=== PATIENT | male | born 1950 | race Caucasian/White ===

== ENCOUNTER 2019-06-29 13:40 | Outpatient (CLI) | payer OTHER | END 2019-06-29 13:53 | disposition home or self-care (01) | LOC: RAD 13:40 | DX: M81.8 Other osteoporosis without current pathological fracture (principal); M41.56 Other secondary scoliosis, lumbar region; M47.16 Other spondylosis with myelopathy, lumbar region; M48.062 Spinal stenosis, lumbar region with neurogenic claudication; R26.2 Difficulty in walking, not elsewhere classified; M47.12 Other spondylosis with myelopathy, cervical region; M85.80 Other specified disorders of bone density and structure, unspecified site; N39.498 Other specified urinary incontinence; R15.2 Fecal urgency; F41.8 Other specified anxiety disorders; E66.09 Other obesity due to excess calories ==